=== PATIENT | male | born 1985 | race Caucasian/White ===

== ENCOUNTER 2017-09-23 20:30 | Observation (INO) | payer SELFPAY ==
[~2017-09-23] VITALS: Ht 175.3 cm; Wt 90.6 kg
[2017-09-23 21:07] LABS: HEMATOCRIT 44.2 % (42.0-52.0); HEMOGLOBIN 14.8 g/dl (13.5-18.0); MEAN CELL VOLUME 94 fl (80.0-100.0); MEAN CORPUSCULAR HEMOGLOBIN 32 pg (27.0-31.0); MEAN CORPUSCULAR HGB CONC 34 g/dl (33.0-37.0); MEAN PLATELET VOLUME 11.3 fl (7.4-10.4); PLATELET COUNT 212 K/mm3 (130-400); RED BLOOD COUNT 4.69 M/mm3 (4.20-5.60); REDCELL DISTRIBUTION WIDTH-CV 12.3 % (11.5-14.5)
[2017-09-23 21:18] LABS: ALBUMIN 4.2 gm/dL (3.5-5.0); BILIRUBIN,TOTAL 0.4 mg/dL (0.0-1.0); CALCIUM 8.8 mg/dL (8.4-10.2); CREATININE, serum 1.27 mg/dL (0.66-1.25); POTASSIUM 3.9 mmol/L (3.4-5.0); TOTAL PROTEIN 6.8 gm/dL (6.4-8.2)
[2017-09-23 21:24] LABS: BAND 23 % (0-10); EOSINOPHIL 1 % (0-4); LYMPHOCYTE 16 % (20.0-51.0); NEUTROPHILS 55 % (42.0-75.2); PLATELET ESTIMATE NORMAL (NORMAL)
[2017-09-24 00:58] VITALS: BP 140/64; PULSE 99; TEMP 98.5
[2017-09-24 04:00] VITALS: BP 145/90; PULSE 112; TEMP 98.5
== END 2017-09-24 08:12 | disposition home or self-care (01) ==
LOC: COL.ER 20:30 → SURG 22:05
PROVIDERS: Family Medicine
DX: S51.811A Laceration without foreign body of right forearm, initial encounter (principal); W54.0XXA Bitten by dog, initial encounter; F43.10 Post-traumatic stress disorder, unspecified; S61.412A Laceration without foreign body of left hand, initial encounter; S91.012A Laceration without foreign body, left ankle, initial encounter; S51.832A Puncture wound without foreign body of left forearm, initial encounter; S51.831A Puncture wound without foreign body of right forearm, initial encounter
CPT/HCPCS: G0378; J0690; J1170; J2060; J2405; J7030